=== PATIENT | female | born 1980 | race Hispanic/Latino ===

== ENCOUNTER 2018-07-20 22:08 | Emergency (ER) | payer BC ==
[~2018-07-20] VITALS: Ht 160 cm; Wt 108.9 kg
--- OUTSIDE RECORDS SUMMARY | 2018-07-20 22:11 | XMS REPORT | Clinical Summary ---
Author Author [facility] Organization [facility] Address Unknown Phone Unavailable Care Team Providers [facility] [employer] Executive Name Role Phone Farrah Franco MD PCP Allergies Comments Active Allergy Reactions Severity Noted Date Sulfamethoxazole-Trimetho 08/02/2017 prim Metformin Diarrhea 02/21/2018 Medications End Date Status Medication Sig Dispensed Refills Start Date Active blood sugar diagnostic Test daily 100 strip 1 strips (CONTOUR TEST 7 STRIPS) strip test strips 02/20/2019 Active ramipril (ALTACE) 5 MG Take 1 30 capsule 6 capsule capsule (5 mg 8 total) by mouth daily. Active sitaGLIPtin (JANUVIA) 100 Take 1 tablet 30 tablet 3 MG tabletIndications: (100 mg 8 Type 2 diabetes mellitus total) by without complication, mouth daily. without long-term current use of insulin ([facility]) Active pioglitazone (ACTOS) 45 Take 1 tablet 30 tablet 3 MG tabletIndications: (45 mg total) 8 Type 2 diabetes mellitus by mouth without complication, daily. without long-term current use of insulin ([facility]) 05/03/2019 Active glimepiride (AMARYL) 2 MG Take 1 tablet 30 tablet 3 tabletIndications: Type 2 (2 mg total) 8 diabetes mellitus without by mouth complication, without daily before long-term current use of breakfast. insulin ([facility]) Active empagliflozin 25 mg Take 1 tablet 30 tablet 3 tablet each morning 8 08/22/2017 Discontinued glimepiride (AMARYL) 1 MG Take 1 tablet 30 tablet 1 tabletIndications: Type 2 (1 mg total) 7 diabetes mellitus without by mouth complication, without daily before long-term current use of breakfast. insulin ([facility]) 08/22/2017 Discontinued JANUVIA 100 mg TAKE 1 TABLET 30 tablet 0 tabletIndications: Type 2 BY MOUTH 7 diabetes mellitus without EVERY DAY complication, without long-term current use of insulin ([facility]) 08/22/2017 Discontinued pioglitazone (ACTOS) 30 TAKE 1 TABLET 30 tablet 0 MG tabletIndications: BY MOUTH 7 Type 2 diabetes mellitus EVERY DAY without complication, without long-term current use of insulin ([facility]) 11/02/2017 Discontinued glimepiride (AMARYL) 1 MG Take 1 tablet 30 tablet 0 tabletIndications: Type 2 (1 mg total) 8 diabetes mellitus without by mouth complication, without daily before long-term current use of breakfast. insulin ([facility]) 11/02/2017 Discontinued sitaGLIPtin (JULUVIA) 100 Take 1 tablet 30 tablet 0 MG tabletIndications: (100 mg 8 Type 2 diabetes mellitus total) by without complication, mouth daily. without long-term current use of insulin ([facility]) 11/02/2017 Discontinued pioglitazone (ACTOS) 30 Take 1 tablet 30 tablet 0 MG tabletIndications: (30 mg total) 8 Type 2 diabetes mellitus by mouth without complication, daily. without long-term current use of insulin ([facility]) 08/22/2017 fluconazole (DIFLUCAN) Take 1 tablet 1 tablet 0 150 MG tablet (150 mg 8 total) by mouth once for 1 dose. 02/20/2018 Discontinued ramipril (ALTACE) 5 MG Take 1 30 capsule 3 capsuleIndications: Type capsule (5 mg 8 2 diabetes mellitus total) by without complication, mouth daily. without long-term current use of insulin ([facility]), Essential hypertension 02/21/2018 Discontinued glimepiride (AMARYL) 1 MG Take 1 tablet 30 tablet 0 tabletIndications: Type 2 (1 mg total) 8 diabetes mellitus without by mouth complication, without daily before long-term current use of breakfast. insulin ([facility]) 02/15/2018 Discontinued pioglitazone (ACTOS) 30 Take 1 tablet 30 tablet 0 MG tabletIndications: (30 mg total) 8 Type 2 diabetes mellitus by mouth without complication, daily. without long-term current use of insulin ([facility]) 02/21/2018 Discontinued sitaGLIPtin (JANUVIA) 100 Take 1 tablet 30 tablet 0 MG tabletIndications: (100 mg 8 Type 2 diabetes mellitus total) by without complication, mouth daily. without long-term current use of insulin ([facility]) 11/03/2017 fluconazole (DIFLUCAN) Take 1 tablet 1 tablet 0 150 MG tablet (150 mg 8 total) by mouth once for 1 dose. 02/15/2018 Discontinued fluconazole (DIFLUCAN) Take 1 tablet 1 tablet 0 150 MG tablet (150 mg 8 total) by mouth once for 1 dose. 02/15/2018 fluconazole (DIFLUCAN) Take 1 tablet 1 tablet 0 150 MG tablet (150 mg 8 total) by mouth once for 1 dose. 02/21/2018 Discontinued pioglitazone (ACTOS) 30 Take 1 tablet 30 tablet 0 MG tabletIndications: (30 mg total) 8 Type 2 diabetes mellitus by mouth without complication, daily. without long-term current use of insulin ([facility]) 05/03/2018 Discontinued sitaGLIPtin (JANUVIA) 100 Take 1 tablet 30 tablet 1 MG tabletIndications: (100 mg 8 Type 2 diabetes mellitus total) by without complication, mouth daily. without long-term current use of insulin ([facility]) 05/03/2018 Discontinued pioglitazone (ACTOS) 45 Take 1 tablet 30 tablet 1 MG tabletIndications: (45 mg total) 8 Type 2 diabetes mellitus by mouth without complication, daily. without long-term current use of insulin ([facility]) 05/03/2018 Discontinued glimepiride (AMARYL) 2 MG Take 1 tablet 30 tablet 1 tabletIndications: Type 2 (2 mg total) 8 diabetes mellitus without by mouth complication, without daily before long-term current use of breakfast. insulin ([facility]) 05/03/2018 Discontinued empagliflozin 10 mg Take 1 tablet 30 tablet 1 tablet tablet (10 mg total) 8 by mouth daily. 03/29/2018 fluconazole (DIFLUCAN) Take 1 tablet 1 tablet 0 150 MG tablet (150 mg 8 total) by mouth once for 1 dose. 04/19/2018 ciprofloxacin (CIPRO) 500 Take 1 tablet 20 tablet 0 09/17/201 MG tabletIndications: (500 mg 8 Acute diverticulitis total) by mouth 2 (two) times a day for 10 days. 04/19/2018 metroNIDAZOLE (FLAGYL) Take 1 tablet 40 tablet 0 500 MG tabletIndications: (500 mg 8 Acute diverticulitis total) by mouth 4 (four) times a day for 10 days. Avoid all alcohol Active Problems Problem Noted Date Type 2 diabetes mellitus without complication, without long-term current 11/01/2017 use of insulin Essential hypertension 11/01/2017 Encounters Care Team Description Date Type Specialty Farrah Franco MD Type 2 diabetes mellitus without complication, without long-term current use of insulin (HCC) 05/03/2018 Orders Only Family Farrah Gonzalez MD Acute diverticulitis; Type 2 diabetes mellitus without complication, without long-term current use of insulin (HCC) 05/02/2018 Lab Lab Farrah Franco MD Acute diverticulitis (Primary Dx); Type 2 diabetes mellitus without complication, without long-term current use of insulin (HCC); Essential hypertension 05/02/2018 Office Visit Family Farrah Gonzalez MD Acute diverticulitis (Primary Dx); Type 2 diabetes mellitus without complication, without long-term current use of insulin 04/09/2018 Office Visit Family Nayely Yee RN 04/09/2018 Telephone Family Farrah Gonzaelz MD 03/29/2018 Telephone Family Farrah Gonzalez MD Type 2 diabetes mellitus without complication, without long-term current use of insulin 02/21/2018 Orders Only Family Farrah Gonzalez MD Essential hypertension; Type 2 diabetes mellitus without complication, without long-term current use of insulin; Pure hyperglyceridemia 02/20/2018 Lab Lab Farrah Franco MD Type 2 diabetes mellitus without complication, without long-term current use of insulin (Primary Dx); Essential hypertension; Pure hyperglyceridemia; Type 2 diabetes mellitus without complication, without long-term current use of insulin; Essential hypertension 02/20/2018 Office Visit Family Farrah Gonzalez MD Type 2 diabetes mellitus without complication, without long-term current use of insulin 02/15/2018 Refill Family Medicine Inderjit Lee, [employer] 01/19/2018 Telephone Family Medicine Farrah Franco MD 01/18/2018 Telephone Family Medicine Farrah Franco MD Elevated LFTs (Primary Dx); Abnormal liver ultrasound 11/20/2017 Telephone Family Medicine Farrah Franco MD 11/17/2017 Telephone Family Medicine Farrah Franco MD Elevated LFTs 11/07/2017 Lab Lab Farrah Franco MD Elevated LFTs (Primary Dx) 11/07/2017 Office Visit Family Medicine Farrah Franco MD 11/03/2017 Telephone Family Medicine Farrah Franco MD Type 2 diabetes mellitus without complication, without long-term current use of insulin 11/02/2017 Orders Only Family Medicine Farrah Franco MD Pure hypercholesterolemia; Type 2 diabetes mellitus without complication, without long-term current use of insulin; Essential hypertension 11/01/2017 Lab Lab Farrah Franco MD Type 2 diabetes mellitus without complication, without long-term current use of insulin (Primary Dx); Essential hypertension; Pure hypercholesterolemia 11/01/2017 Office Visit Family Medicine Farrah Franco MD Type 2 diabetes mellitus without complication, without long-term current use of insulin 08/22/2017 Telephone Family Medicine Ana Maria Acevedo, [employer] 08/01/2017 Telephone Family Medicine after 07/19/2017 Family History Medical History Relation Name Comments Diabetes Father Arthritis Mother Hypertension Mother Hypertension Sister Relation Name Status Comments Father Alive Mother Alive Sister Alive Social History Date Tobacco Use Types Packs/Day Years Used Never Smoker Smokeless Tobacco: Never Used Tobacco Cessation: Counseling Given: No Sex Assigned at Date Recorded Not on file Industry Job Start Date Occupation Not on file Not on file Not on file Travel End Travel History Travel Start No recent travel history available. Last Filed Vital Signs Time Taken Vital Sign Reading 05/02/2018 11:24 AM CDT Blood Pressure 150/95 05/02/2018 10:49 AM CDT Pulse 77 05/02/2018 10:49 AM CDT Temperature 36.9 C (98.5 F) 02/20/2018 11:38 AM CDT Respiratory Rate 16 05/02/2018 10:49 AM CDT Oxygen Saturation 96% - Inhaled Oxygen - Concentration 05/02/2018 10:49 AM CDT Weight 99.3 kg (219 lb) 05/02/2018 10:49 AM CDT Height 160 cm (5' 3") 05/02/2018 10:49 AM CDT Body Mass Index 38.79 Plan of Treatment Care Team Description Date Type Specialty Farrah Franco MD [address] [facility] [address] [place] [address] [phone] 08/01/2018 Office Visit Family Medicine Health Maintenance Due Date Last Done Comments DIABETIC RETINAL EYE EXAM 1980 DIABETIC FOOT EXAM 1990 CERVICAL CANCER SCREENING 2001 INFLUENZA VACCINE 02/21/2018 URINE MICROALBUMIN 11/01/2018 11/01/2017, 01/05/2017 Procedures Comments Procedure Name Priority Date/Time Associated Diagnosis MICROSCOPIC EXAMINATION Routine 05/02/2018 11:39 AM CDT C-REACTIVE PROTEIN Routine 05/02/2018 Acute diverticulitis 11:39 AM CDT HEMOGLOBIN A1C Routine 05/02/2018 Type 2 diabetes mellitus 11:39 AM CDT without complication, without long-term current use of insulin (HCC) URINALYSIS, AUTOMATED Routine 05/02/2018 Acute diverticulitis WITH MICROSCOPY 11:39 AM CDT Type 2 diabetes mellitus without complication, without long-term current use of insulin (HCC) COMPREHENSIVE METABOLIC Routine 05/02/2018 Acute diverticulitis PANEL 11:39 AM CDT Type 2 diabetes mellitus without complication, without long-term current use of insulin (HCC) CBC WITH PLATELET AND Routine 05/02/2018 Acute diverticulitis DIFFERENTIAL 11:39 AM CDT HEMOGLOBIN A1C Routine 02/20/2018 Type 2 diabetes mellitus 12:10 PM CDT without complication, without long-term current use of insulin LIPID PANEL Routine 02/20/2018 Pure hyperglyceridemia 12:10 PM CDT COMPREHENSIVE METABOLIC Routine 02/20/2018 Essential hypertension PANEL 12:10 PM CDT Type 2 diabetes mellitus without complication, without long-term current use of insulin Pure hyperglyceridemia US HEPATIC Routine 11/16/2017 Elevated LFTs 9:15 AM CDT TOTAL IRON BINDING Routine 11/07/2017 Elevated LFTs CAPACITY 2:08 PM CDT FERRITIN LEVEL Routine 11/07/2017 Elevated LFTs 2:08 PM CDT HEPATITIS C ANTIBODY Routine 11/07/2017 Elevated LFTs 2:08 PM CDT HEPATITIS B SURFACE Routine 11/07/2017 Elevated LFTs ANTIGEN 2:08 PM CDT MICROSCOPIC EXAMINATION Routine 11/01/2017 9:40 AM CDT CREATINE KINASE, TOTAL Routine 11/01/2017 Pure hypercholesterolemia (CPK) 9:40 AM CDT THYROID STIMULATING Routine 11/01/2017 Essential hypertension HORMONE 9:40 AM CDT Pure hypercholesterolemia MICROALBUMIN / CREATININE Routine 11/01/2017 Type 2 diabetes mellitus URINE RATIO 9:40 AM CDT without complication, without long-term current use of insulin HEMOGLOBIN A1C Routine 11/01/2017 Type 2 diabetes mellitus 9:40 AM CDT without complication, without long-term current use of insulin URINALYSIS, AUTOMATED Routine 11/01/2017 Type 2 diabetes mellitus WITH MICROSCOPY 9:40 AM CDT without complication, without long-term current use of insulin COMPREHENSIVE METABOLIC Routine 11/01/2017 Type 2 diabetes mellitus PANEL 9:40 AM CDT without complication, without long-term current use of insulin Essential hypertension Pure hypercholesterolemia LIPID PANEL Routine 11/01/2017 Pure hypercholesterolemia 9:40 AM CDT after 07/19/2017 Results * Microscopic Examination (05/02/2018 11:39 AM CDT) Only the most recent of 2 results within the time period is included. WBC, UA 0-5 0 - 5 /hpf [facility] RBC, UA 0-2 0 - 2 /hpf [facility] Epithelial cells (non 0-10 0 - 10 /hpf [facility] renal) Mucus, UA Present Not Estab. [facility] Bacteria, UA Few None seen/Few [facility] Narrative Performed At Performed at: [facility] [address] [place], [place] [id number] Land Use Planner: Jarvis Krueger MD, Phone:[phone] Performing Organization Address [facility] Phone Number [facility] * Urinalysis, automated with microscopy (05/02/2018 11:39 AM CDT) Only the most recent of 2 results within the time period is included. Specific gravity, urine >=1.030 (A) 1.005 - 1.030 [facility] pH, urine 6.0 5.0 - 7.5 [facility] Color, UA Yellow Yellow [facility] Appearance Clear Clear [facility] WBC esterase, urine Negative Negative [facility] Protein, UA Negative Negative/Trace [facility] Glucose, urine 3+ (A) Negative [facility] Ketones, UA 2+ (A) Negative [facility] Occult blood, urine Negative Negative [facility] Bilirubin, UA Negative Negative [facility] Urobilinogen, UA 0.2 0.2 - 1.0 mg/dL [facility] Nitrite, UA Negative Negative [facility] Microscopic examination CommentComment: Microscopic [facility] follows if indicated. Microscopic examination See below:Comment: Microscopic [facility] was indicated and was performed. Specimen Blood Narrative Performed At [facility]formed at: [facility] [address] [place], [place] [id number] Land Use Planner: Jarvis Krueger MD, Phone:[phone] Performing Organization Address [facility] Phone Number [facility] * CBC with platelet and differential (05/02/2018 11:39 AM CDT) WBC 8.3 3.4 - 10.8 x10E3/uL [facility] RBC 4.73 3.77 - 5.28 x10E6/uL [facility] HGB 14.2 11.1 - 15.9 g/dL [facility] HCT 42.5 34.0 - 46.6 % [facility] MCV 90 79 - 97 fL [facility] MCH 30.0 26.6 - 33.0 pg [facility] MCHC 33.4 31.5 - 35.7 g/dL [facility] RDW 13.9 12.3 - 15.4 % [facility] Platelet count 240 150 - 379 x10E3/uL [facility] Neutrophils 52 Not Estab. % [facility] Lymphocytes 40 Not Estab. % [facility] Monocytes 6 Not Estab. % [facility] Eosinophils 2 Not Estab. % [facility] Basophils 0 Not Estab. % [facility] Neutrophils, absolute 4.3 1.4 - 7.0 x10E3/uL [facility] Lymphocytes, absolute 3.3 (H) 0.7 - 3.1 x10E3/uL [facility] Monocytes, absolute 0.5 0.1 - 0.9 x10E3/uL [facility] Eosinophils, absolute 0.2 0.0 - 0.4 x10E3/uL [facility] Basophils, absolute 0.0 0.0 - 0.2 x10E3/uL [facility] Immature granulocytes 0 Not Estab. % [facility] Immature grans (abs) 0.0 0.0 - 0.1 x10E3/uL [facility] Specimen Blood Narrative Performed At [facility]: [id number] Land Use Planner: Jarvis Krueger MD, Phone:[phone] Performing Organization Address [facility] Phone Number [facility] * C-reactive protein (05/02/2018 11:39 AM CDT) CRP 5.9 (H) 0.0 - 4.9 mg/L [facility] Specimen Blood Narrative Performed At Performed at: [id number] Land Use Planner: Jarvis Krueger MD, Phone:[phone] Performing Organization Address [facility] Phone Number [facility] * Hemoglobin A1c (05/02/2018 11:39 AM CDT) Only the most recent of 3 results within the time period is included. Hemoglobin A1C 9.2 (H) 4.8 - 5.6 % [facility] Comment: Prediabetes: 5.7 - 6.4 Diabetes: >6.4 Glycemic control for adults with diabetes: <7.0 Specimen Blood Narrative Performed At Performed at:01 - [facility] [address] [place], [id number] Land Use Planner: Jarvis Krueger MD, Phone:[phone] Performing Organization Address [facility] Phone Number [facility] * Comprehensive metabolic panel (05/02/2018 11:39 AM CDT) Only the most recent of 3 results within the time period is included. Glucose 123 (H) 65 - 99 mg/dL [facility] BUN, whole blood 9 6 - 20 mg/dL [facility] Creatinine 0.49 (L) 0.57 - 1.00 mg/dL [facility] EGFR Non-Afr. Marshallese 125 >59 mL/min/1.73 [facility] EGFR 144 >59 mL/min/1.73 [facility] BUN/creatinine ratio 18 9 - 23 [facility] Sodium 141 134 - 144 mmol/L [facility] Potassium 4.1 3.5 - 5.2 mmol/L [facility] Chloride 104 96 - 106 mmol/L [facility] CO2 23 20 - 29 mmol/L [facility] Calcium 8.8 8.7 - 10.2 mg/dL [facility] Protein 7.1 6.0 - 8.5 g/dL [facility] Albumin, S 4.1 3.5 - 5.5 g/dL [facility] Globulin, total 3.0 1.5 - 4.5 g/dL [facility] Albumin/globulin ratio 1.4 1.2 - 2.2 [facility] Total bilirubin 0.4 0.0 - 1.2 mg/dL [facility] Alkaline phosphatase 62 39 - 117 IU/L [facility] AST 35 0 - 40 IU/L [facility] ALT 37 (H) 0 - 32 IU/L [facility] Specimen Blood Narrative Performed At Performed at:01 - [facility] [address] [place], [id number] Land Use Planner: Jarvis Krueger MD, Phone:[phone] Performing Organization Address [facility] Phone Number [facility] * Lipid panel (02/20/2018 12:10 PM CDT) Only the most recent of 2 results within the time period is included. Cholesterol 156 100 - 199 mg/dL [facility] Triglycerides 177 (H) 0 - 149 mg/dL [facility] HDL cholesterol 45 >39 mg/dL [facility] VLDL cholesterol toñito 35 5 - 40 mg/dL [facility] LDL cholesterol 76 0 - 99 mg/dL [facility] calculated Non-HDL cholesterol 111 0 - 129 mg/dL [facility] Specimen Blood Narrative Performed At Performed at:01 - [facility] [address] [place], [id number] Land Use Planner: Jarvis Krueger MD, Phone:[phone] Performing Organization Address City/[facility]/Zipcode Phone Number [facility] * US Hepatic (11/16/2017 9:15 AM CDT) Narrative Performed At EXAMINATION:US HEPATIC [facility] CLINICAL HISTORY:R79.89 Other specified abnormal findings of blood chemistry, elevated LFTs COMPARISON:None. TECHNIQUE:Focused sonographic evaluation of the liver was performed. IMPRESSION: 1.Liver is echogenic, suggesting steatosis. Echotexture appears coarsened; cirrhosis is not excluded. Correlation with MR or ultrasound elastography is available to evaluate for liver fibrosis. No hepatic mass identified sonographically. 2.Gallbladder is surgically absent. Common bile duct measures 6 mm, within normal limits. 3.The main portal vein is patent with hepatopetal flow, measuring 13 mm. 4.No ascites or right pleural effusion was seen. [facility]-[id number] Procedure Note Interface, Radiology Results Incoming - 11/16/2017 9:39 AM CDT EXAMINATION: US HEPATIC CLINICAL HISTORY: R79.89 Other specified abnormal findings of blood chemistry, elevated LFTs COMPARISON: None. TECHNIQUE: Focused sonographic evaluation of the liver was performed. IMPRESSION: 1. Liver is echogenic, suggesting steatosis. Echotexture appears coarsened; cirrhosis is not excluded. Correlation with MR or ultrasound elastography is available to evaluate for liver fibrosis. No hepatic mass identified sonographically. 2. Gallbladder is surgically absent. Common bile duct measures 6 mm, within normal limits. 3. The main portal vein is patent with hepatopetal flow, measuring 13 mm. 4. No ascites or right pleural effusion was seen. [facility]-[id number] Performing Organization Address [facility]/Zipcode Phone Number [facility] [address] [place] [address] * Total iron binding capacity (11/07/2017 2:08 PM CDT) Iron binding capacity 387 250 - 450 ug/dL [facility] Unsaturated iron binding 330 131 - 425 ug/dL [facility] capacity Iron level 57 27 - 159 ug/dL [facility] Iron saturation 15 15 - 55 % [facility] Specimen Blood Narrative Performed At Performed at:[address] [place], [place] [id number] Land Use Planner: Jarvis Krueger MD, Phone:[phone] Performing Organization Address [facility] Phone Number [facility] * Hepatitis C antibody (11/07/2017 2:08 PM CDT) Hepatitis C Ab <0.1 0.0 - 0.9 s/co ratio [facility] Comment: Negative: < 0.8 Indeterminate: 0.8 - 0.9 Positive: > 0.9 The CDC recommends that a positive HCV antibody result be followed up with a HCV Nucleic Acid Amplification test (839488). Specimen Blood Narrative Performed At Performed at:[address] [place], [place] [id number] Land Use Planner: Jravis Krueger MD, Phone:[phone] Performing Organization Address [facility] Phone Number [facility] * Hepatitis B surface antigen (11/07/2017 2:08 PM CDT) Hepatitis B surface Ag Negative Negative [facility] Specimen Blood Narrative Performed At Performed at:[address] [place], [place] [id number] Land Use Planner: Jarvis Krueger MD, Phone:[phone] Performing Organization Address [facility] Phone Number [facility] * Ferritin level (11/07/2017 2:08 PM CDT) Ferritin level 118 15 - 150 ng/mL [facility] Specimen Blood Narrative Performed At Performed at:[address] [place], [place] [id number] Land Use Planner: Jarvis Krueger MD, Phone:[phone] Performing Organization Address [facility] Phone Number [facility] * Microalbumin / creatinine urine ratio (11/01/2017 9:40 AM CDT) Creatinine, urine, random 116.3 Not Estab. mg/dL [facility] Microalbumin, urine 14.0 Not Estab. ug/mL [facility] Microalbumin/creatinine 12.0 0.0 - 30.0 mg/g creat [facility] ratio Specimen Blood Narrative Performed At [facility] Performed at: [id number] Land Use Planner: Jarvis Krueger MD, Phone:[phone] Performing Organization Address [facility] Phone Number [facility] * Thyroid stimulating hormone (11/01/2017 9:40 AM CDT) TSH 2.930 0.450 - 4.500 uIU/mL [facility] Specimen Blood Narrative Performed At [facility] Performed at: [id number] Land Use Planner: Jarvis Krueger MD, Phone:[phone] Performing Organization Address [facility] Phone Number [facility] * Creatine kinase, total (CPK) (11/01/2017 9:40 AM CDT) Creatine kinase 32 24 - 173 U/L [facility] Specimen Blood Narrative Performed At [facility] Performed at: [facility] [id number] Land Use Planner: Jarvis Krueger MD, Phone:[phone] Performing Organization Address [facility] Phone Number [facility] after 07/19/2017 Insurance Payer Benefit Subscriber ID Type Phone Address Plan / Group BCBS BCBS xxxxxxxxxxxx PPO CHOICE PPO/[employer] PPO Advance Directives Patient has advance care planning documents on file. For more information, pleas e contact: Wellington Campbell [address] [place] [address]
[2018-07-20] MEDS ORDERED: ONDANSETRON HCL INJ 2 MG/ML VIAL IV STA (22:57)
[2018-07-20] MEDS ORDERED: MORPHINE SULFATE 5 MG/ML VIAL IV ONE (23:00)
--- NOTE | 2018-07-21 00:57 | Diagnostic Imaging Report ---
EXAM: CT ABDOMEN AND PELVIS WITH IV CONTRAST INDICATION: Right lower quadrant pain COMPARISON: None TECHNIQUE: The abdomen and pelvis were scanned using a multidetector helical scanner. Coronal and sagittal reformations were obtained. Dose modulation, iterative reconstruction, and/or weight based adjustment of the mA/kV was utilized to reduce the radiation dose to as low as reasonably achievable. Routine protocol performed. IV Contrast: 100 cc Isovue 370 Oral Contrast: None CTDIvol has been reviewed. It is below the limits set by the Radiation Protocol Committee (RPC). FINDINGS: LOWER THORAX: No consolidations LIVER: Cystic structure measuring 1 cm at the liver dome. BILIARY: Cholecystectomy. No ductal dilation. SPLEEN: No masses PANCREAS: No masses ADRENALS: No nodules KIDNEYS: No enhancing masses. No hydronephrosis. GI TRACT: No wall thickening or obstruction. Sigmoid colon diverticulosis. Normal appendix. VESSELS: Normal PERITONEUM/RETROPERITONEUM: No free air or fluid LYMPH NODES: No lymphadenopathy REPRODUCTIVE ORGANS: Simple right ovarian cyst measuring 3.5 cm. Normal appearance of the uterus and left ovary. BLADDER: Normal SOFT TISSUES: Normal BONES: Posterior degenerative osteophyte disc complex L2/L3, L3/L4 and L5/S1. IMPRESSION: No acute findings in the CT of the abdomen or pelvis. No evidence of appendicitis. Simple right ovarian 3.5 cm cyst. No follow-up indicated. Signed by: Dr. Rekha Huizar M.D. on 07/21/2018 12:54 AM
== END 2018-07-21 01:45 | disposition home or self-care (01) ==
LOC: FSED 22:08
DX: R10.31 Right lower quadrant pain (principal); I10 Essential (primary) hypertension; E11.65 Type 2 diabetes mellitus with hyperglycemia
CPT/HCPCS: 74177; 80053; 81003; 81025; 85025; 99284

== ENCOUNTER 2019-06-04 13:18 | Emergency (ER) | payer BC ==
[~2019-06-04] VITALS: Ht 160 cm; Wt 109.8 kg
[~2019-06-04 13:18] MED LIST: GLIMEPIRIDE2 MG; JANUVIA100 MG; JARDIANCE; PIOGLITAZONE HC45 MG; RAMIPRIL10 MG
[2019-06-04] MEDS ORDERED: POTASSIUM CHLORIDE 20 MEQ TAB CR PO ONE (14:55)
[2019-06-04] MEDS ORDERED: POTASSIUM CHLORIDE 20 MEQ TAB CR PO NR (15:00)
== END 2019-06-04 15:00 | disposition home or self-care (01) ==
LOC: FSED 13:18
DX: R00.2 Palpitations (principal); I10 Essential (primary) hypertension; E11.9 Type 2 diabetes mellitus without complications; F12.90 Cannabis use, unspecified, uncomplicated
CPT/HCPCS: 80053; 80307; 81003; 85025; 93005; 99283

== ENCOUNTER 2020-08-02 09:31 | Emergency (ER) | payer BC ==
[~2020-08-02] VITALS: Ht 160 cm; Wt 107.1 kg
[2020-08-02] MEDS ORDERED: LANTUS 3ML100 UNITS/ SQ (10:06)
[2020-08-02] MEDS ORDERED: FAMOTIDINE 20 MG/2 ML VIAL IV STA (10:10)
[2020-08-02] MEDS ORDERED: DONNATAL/LIDOCAINE/MAALOX 30 ML SUSP PO ONE (10:15)
[2020-08-02] MEDS ORDERED: BELLADONNA ALK/PHENOBARBITAL 5 ML UDC ONE (10:24)
[2020-08-02] MEDS ORDERED: MAGNESIUM/ALUMINUM/SIMETHICONE 30 ML UDC ONE (10:24)
[2020-08-02] MEDS ORDERED: LIDOCAINE VISC 2% SOLN 15 ML UDC ONE (10:24)
[2020-08-02] MEDS ORDERED: FAMOTIDINE20 MG PO (11:48)
[2020-08-02 12:09] VITALS: BP 135/75
== END 2020-08-02 12:00 | disposition home or self-care (01) ==
LOC: FSED 09:57
DX: R07.9 Chest pain, unspecified (principal); R05 Cough; E11.65 Type 2 diabetes mellitus with hyperglycemia; K29.70 Gastritis, unspecified, without bleeding; F41.9 Anxiety disorder, unspecified; I10 Essential (primary) hypertension; E66.01 Morbid (severe) obesity due to excess calories; Z87.19 Personal history of other diseases of the digestive system; F17.210 Nicotine dependence, cigarettes, uncomplicated
CPT/HCPCS: 71046; 80053; 81003; 81025; 82553; 84484; 85025; 93005; 96374; 99284

== ENCOUNTER 2020-10-14 18:21 | Emergency (ER) | payer BC ==
[~2020-10-14] VITALS: Ht 160 cm; Wt 104.0 kg
[~2020-10-14 18:21] MED LIST changes: +FAMOTIDINE20 MG PO; +LANTUS 3ML100 UNITS/ SQ
[2020-10-14] MEDS ORDERED: METFORMIN HCL500 M2 PO (18:37)
[2020-10-14] MEDS ORDERED: TRULICITY0.75 MG/0. (18:37)
[2020-10-14] MEDS ORDERED: SODIUM CHLORIDE 0.9% 1000ML 1,000 ML IV STA (18:53)
[2020-10-14] MEDS ORDERED: ONDANSETRON HCL INJ 2MG/ML 2ML 2 MG/ML VIAL IV STA (18:53)
[2020-10-14] MEDS ORDERED: SODIUM CHLORIDE 0.9% 1000ML 1,000 ML ONE (19:20)
== END 2020-10-14 20:46 | disposition home or self-care (01) ==
LOC: FSED 18:23
DX: K57.91 Diverticulosis of intestine, part unspecified, without perforation or abscess with bleeding (principal); I10 Essential (primary) hypertension; E11.65 Type 2 diabetes mellitus with hyperglycemia; K21.9 Gastro-esophageal reflux disease without esophagitis
CPT/HCPCS: 80053; 81003; 85025; 85379; 85610; 99283; J2405; J7030

== ENCOUNTER 2021-03-01 15:41 | Emergency (ER) | payer BC ==
[~2021-03-01] VITALS: Ht 157.5 cm; Wt 99.0 kg
[~2021-03-01 15:41] MED LIST changes: +METFORMIN HCL500 M2 PO; +TRULICITY0.75 MG/0.
[2021-03-01] MEDS: FAMOTIDINE 20 MG/2 ML VIAL IV ONE (16:10)
[2021-03-01] MEDS ORDERED: ONDANSETRON HCL INJ 2MG/ML 2ML 2 MG/ML VIAL ONE (16:10)
[2021-03-01] MEDS ORDERED: KETOROLAC TROMETHAMINE 30 MG/ML VIAL ONE (16:10)
[2021-03-01] MEDS: KETOROLAC TROMETHAMINE 30 MG/ML VIAL IV ONE (16:10)
[2021-03-01] MEDS ORDERED: SODIUM CHLORIDE 0.9% 1000ML 1,000 ML ONE (16:10)
[2021-03-01] MEDS ORDERED: FAMOTIDINE 20 MG/2 ML VIAL IV ONE (16:10)
[2021-03-01] MEDS: ONDANSETRON HCL INJ 2MG/ML 2ML 2 MG/ML VIAL IV ONE (16:10)
[2021-03-01] MEDS: SODIUM CHLORIDE 0.9% 1000ML 1,000 ML IV STA (16:10)
[2021-03-01] MEDS ORDERED: OMEPRAZOLE40 MG PO (16:48)
[2021-03-01] MEDS ORDERED: ONDANSETRON ODT4 MG PO (16:48)
[2021-03-01] MEDS ORDERED: ULTRAM 50MG50 MG PO (16:48)
== END 2021-03-01 18:37 | disposition home or self-care (01) ==
LOC: FSED 16:01
DX: K29.70 Gastritis, unspecified, without bleeding (principal); K76.0 Fatty (change of) liver, not elsewhere classified; I10 Essential (primary) hypertension; E11.9 Type 2 diabetes mellitus without complications; Z79.4 Long term (current) use of insulin; Z79.899 Other long term (current) drug therapy
CPT/HCPCS: 74176; 80053; 81003; 85025; 96374; 96375; 99284; J1885; J2405; J7030

== ENCOUNTER 2021-05-20 22:04 | Emergency (ER) | payer BC ==
[~2021-05-20] VITALS: Ht 157.5 cm; Wt 98.9 kg
[~2021-05-20 22:04] MED LIST changes: +OMEPRAZOLE40 MG PO; +ONDANSETRON ODT4 MG PO; +ULTRAM 50MG50 MG PO
[2021-05-20] MEDS ORDERED: ONDANSETRON HCL INJ 2MG/ML 2ML 2 MG/ML VIAL IV STA (22:33)
[2021-05-20] MEDS ORDERED: ONDANSETRON HCL INJ 2MG/ML 2ML 2 MG/ML VIAL ONE (22:52)
[2021-05-20] MEDS ORDERED: DICYCLOMINE HCL10 MG PO (23:02)
[2021-05-20] MEDS ORDERED: ONDANSETRON ODT4 MG PO (23:02)
== END 2021-05-21 00:30 | disposition home or self-care (01) ==
LOC: FSED 22:27
DX: R10.9 Unspecified abdominal pain (principal); R19.7 Diarrhea, unspecified; I10 Essential (primary) hypertension; E11.9 Type 2 diabetes mellitus without complications; Z87.19 Personal history of other diseases of the digestive system
CPT/HCPCS: 80053; 85025; 93005; 99283; J2405

== ENCOUNTER 2021-09-25 22:34 | Emergency (ER) | payer BC ==
[~2021-09-25] VITALS: Ht 157.5 cm; Wt 98.9 kg
[~2021-09-25 22:34] MED LIST changes: +DICYCLOMINE HCL10 MG PO
[2021-09-25] MEDS ORDERED: KETOROLAC TROMETHAMINE 30 MG/ML VIAL IV STA (22:47)
[2021-09-25] MEDS ORDERED: KETOROLAC TROMETHAMINE 30 MG/ML VIAL ONE (23:28)
[2021-09-25] MEDS ORDERED: Morphine 4mg Syringe 4 MG/ML INJ IV STA (23:46)
[2021-09-25] MEDS ORDERED: ONDANSETRON HCL INJ 2MG/ML 2ML 2 MG/ML VIAL IV STA (23:46)
[2021-09-25] MEDS ORDERED: ACETAMINOPHEN-1 EAC4 PO (23:48)
[2021-09-25] MEDS ORDERED: ONDANSETRON HCL INJ 2MG/ML 2ML 2 MG/ML VIAL ONE (23:58)
[2021-09-25] MEDS ORDERED: Morphine 4mg Syringe 4 MG/ML INJ ONE (23:58)
== END 2021-09-25 23:55 | disposition home or self-care (01) ==
LOC: FSED 22:43
DX: R07.89 Other chest pain (principal); B34.9 Viral infection, unspecified; R05.9 Cough, unspecified; E11.65 Type 2 diabetes mellitus with hyperglycemia; I10 Essential (primary) hypertension; Z87.19 Personal history of other diseases of the digestive system
CPT/HCPCS: 80048; 81003; 81025; 83518; 84484; 85025; 85379; 87400; 93005; 99283; J1885; J2270; J2405

== ENCOUNTER 2022-09-15 01:16 | Emergency (ER) | payer BC ==
[~2022-09-15] VITALS: Ht 157.5 cm; Wt 98.9 kg
[~2022-09-15 01:16] MED LIST changes: +ACETAMINOPHEN-1 EAC4 PO
[2022-09-15] MEDS ORDERED: CLONIDINE HCL 0.1 MG TAB ONE (02:12)
[2022-09-15] MEDS ORDERED: CLONIDINE HCL 0.1 MG TAB PO ONE (02:15)
[2022-09-15] MEDS ORDERED: ASPIRIN 325 MG TAB PO ONE (02:45)
[2022-09-15] MEDS ORDERED: ASPIRIN 325 MG TAB ONE (02:59)
== END 2022-09-15 03:20 | disposition home or self-care (01) ==
LOC: FSED 01:33
DX: R07.9 Chest pain, unspecified (principal); E11.65 Type 2 diabetes mellitus with hyperglycemia; I10 Essential (primary) hypertension; K76.0 Fatty (change of) liver, not elsewhere classified; F41.9 Anxiety disorder, unspecified; E66.01 Morbid (severe) obesity due to excess calories; F17.210 Nicotine dependence, cigarettes, uncomplicated
CPT/HCPCS: 71046; 80053; 82553; 84484; 85025; 93005; 99283

== ENCOUNTER 2024-03-08 19:10 | Emergency (ER) | payer BC ==
[~2024-03-08] VITALS: Ht 157.5 cm; Wt 88.5 kg
[2024-03-08 19:28] VITALS: TEMP 98.2
[2024-03-08] MEDS ORDERED: RAMIPRIL2.5 MG PO (22:22)
[2024-03-08 22:30] VITALS: PULSE 80; RESP 12
[2024-03-08 23:44] VITALS: BP 148/69; PULSE 72; RESP 16; TEMP 98.4; O2SAT 97
== END 2024-03-08 23:29 | disposition home or self-care (01) ==
LOC: FSED 19:46
DX: R42 Dizziness and giddiness (principal); R07.89 Other chest pain; I10 Essential (primary) hypertension; E11.9 Type 2 diabetes mellitus without complications; E78.5 Hyperlipidemia, unspecified; F41.9 Anxiety disorder, unspecified; Z87.19 Personal history of other diseases of the digestive system
CPT/HCPCS: 71046; 93005; 99284